=== PATIENT | female | born 1990 | race Two or more races ===

== ENCOUNTER 2019-06-13 16:21 | Emergency (ER) | payer OTHER ==
[~2019-06-13] VITALS: Ht 162.6 cm; Wt 102.5 kg
[2019-06-13] MEDS ORDERED: PRENATAL TABLE1 EACH (16:40)
== END 2019-06-13 20:09 | disposition home or self-care (01) ==
LOC: ER 16:21
DX: O26.892 Other specified pregnancy related conditions, second trimester (principal); R10.2 Pelvic and perineal pain; B96.0 Mycoplasma pneumoniae [M. pneumoniae] as the cause of diseases classified elsewhere; Z34.01 Encounter for supervision of normal first pregnancy, first trimester